=== PATIENT | female | born 1990 | race Caucasian/White ===

== ENCOUNTER 2018-11-17 14:32 | Emergency (ER) | payer SELFPAY ==
[~2018-11-17] VITALS: Ht 162.6 cm; Wt 86.0 kg
[~2018-11-17 14:32] MED LIST: PREN1TAB49 PO
[2018-11-17 14:37] VITALS: BP 125/70; PULSE 74; RESP 18; Ht 162.6 cm; Wt 86.0 kg
--- NOTE | 2018-11-17 16:15 | ERD ---
ER Documentation Chief Complaint Chief Complaint LIFTED HEAVY OBJECT AT WORK WITH LEFT RIB PAIN X 1 DAY HPI This patient is a 28-year-old female with no significant medical history presenting to the emergency department complaining of left pelvic and left lower rib pain which began yesterday. She states pain is sharp. She is currently 8 weeks , . She states her symptoms were gradual onset and then progressively worsened. Pain is constant and rated 9/10 in severity. She took no medication for relief of symptoms. Her pain is worse when putting weight on her left leg. She denies any fevers, chills, vaginal discharge, vaginal bleeding, abdominal pain, nausea, vomiting, diarrhea, or other symptoms at this time. ROS All systems reviewed and are negative except as per history of present illness. Medications Home Meds Active Scripts Acetaminophen* (Tylenol*) 325 Mg Tablet, 2 TAB PO Q6 PRN for PAIN AND OR ELEVATED TEMP, #20 TAB Prov:AUDRA DICKSON PA-C 11/17/18 Reported Medications Vits W-Ca,Fe,Fa(<1MG) () 1 Tab Tablet, 1 TAB PO DAILY 11/26/12 Allergies Allergies: Coded Allergies: No Known Allergy (Verified , 05/10/13) PMhx/Soc Medical and Surgical Hx: pt denies Medical Hx, pt denies Surgical Hx Hx Alcohol Use: No Hx Substance Use: No Hx Tobacco Use: No Smoking Status: Never smoker FmHx Family History: No diabetes Physical Exam Vitals Vital Signs Date Temp Pulse Resp B/P (MAP) Pulse Ox O2 O2 Flow FiO2 Time Delivery Rate 11/17/18 97.8 74 18 125/70 100 14:37 (88) Physical Exam Const: No acute distress Head: Atraumatic Eyes: Normal Conjunctiva ENT: Normal External Ears, Nose and Mouth. Neck: Full range of motion. No meningismus. Resp: Clear to auscultation bilaterally Cardio: Regular rate and rhythm, no murmurs Abd: Soft, non tender, non distended. Normal bowel sounds. Tenderness palpation of the left pelvic region. There is no rebound tenderness or guarding. No McBurney's point tenderness. MSK: Tenderness palpation of the left lower ribs. No crepitus. Skin: No petechiae or rashes Back: No midline or flank tenderness Ext: No cyanosis, or edema Neur: Awake and alert Psych: Normal Mood and Affect Result Diagram: 11/17/18 1550 Results 24 hrs Laboratory Tests Test 11/17/18 15:50 White Blood Count 9.0 10^3/ul Red Blood Count 4.39 10^6/ul Hemoglobin 13.4 g/dl Hematocrit 39.9 % Mean Corpuscular Volume 90.9 fl Mean Corpuscular Hemoglobin 30.5 pg Mean Corpuscular Hemoglobin Concent 33.6 g/dl Red Cell Distribution Width 12.5 % Platelet Count 260 10^3/UL Mean Platelet Volume 10.1 fl Immature Granulocytes % 0.300 % Neutrophils % 61.2 % Lymphocytes % 30.2 % Monocytes % 6.0 % Eosinophils % 2.0 % Basophils % 0.3 % Nucleated Red Blood Cells % 0.0 /100WBC Immature Granulocytes # 0.030 10^3/ul Neutrophils # 5.5 10^3/ul Lymphocytes # 2.7 10^3/ul Monocytes # 0.5 10^3/ul Eosinophils # 0.2 10^3/ul Basophils # 0.0 10^3/ul Nucleated Red Blood Cells # 0.0 10^3/ul Urine Color YELLOW Urine Clarity SLIGHTLY CLOUDY Urine pH 5.0 Urine Specific [place] 1.020 Urine Ketones NEGATIVE mg/dL Urine Nitrite NEGATIVE mg/dL Urine Bilirubin NEGATIVE mg/dL Urine Urobilinogen NEGATIVE mg/dL Urine Leukocyte Esterase TRACE Mauro/ul Urine Microscopic RBC 1 /HPF Urine Microscopic WBC 5 /HPF Urine Squamous Epithelial Cells MODERATE /HPF Urine Bacteria FEW /HPF Urine Mucus FEW /HPF Urine Hemoglobin NEGATIVE mg/dL Urine Glucose NEGATIVE mg/dL Urine Total Protein NEGATIVE mg/dl Beta HCG, Quantitative 01624.0 mIU/ml [place] [id number] Radiology Main Line: [phone] DIAGNOSTIC IMAGING REPORT Patient: TONY OTERO : 1990 Age: 28 Sex: F MR #: [id number] DOS: 11/17/18 1539 Ordering MD: AUDRA DICKSON PA-C Location: [facility] Room/Bed: PROCEDURE: US OB. CLINICAL INDICATION: Pelvic pain TECHNIQUE: Transabdominal views of the pelvis are available for review. COMPARISON: No prior studies are available for comparison. FINDINGS: There is a single intrauterine gestation with the crown-rump length measuring 1.7 cm, corresponding to a gestational age of 8 weeks and 1 day. The heart rate is noted at 165 bpm. The right ovary is normal and measures 2.7 x 2.2 x 2.1 cm. The left ovary was not seen. There is no free fluid. RPTAT: AA IMPRESSION: Single live intrauterine with an estimated gestational age of 8 weeks and 1 day, based on ultrasound measurements. Left ovary not seen. .Abdoulaye Dumas MD, MD Date Time Electronically viewed and signed by .Abdoulaye Dumas MD, MD on 11/17/2018 17:05 .S/ CC: AUDRA DICKSON PA-C [id number] [place] [address] Radiology Main Line: [phone] DIAGNOSTIC IMAGING REPORT Patient: TONY OTERO : 1990 Age: 28 Sex: F MR #: [id number] DOS: 11/17/18 0000 Ordering MD: AUDRA DICKSON PA-C Location: [facility] Room/Bed: PROCEDURE: XR Chest. CLINICAL INDICATION: chest pain TECHNIQUE: PA and lateral views of the chest were obtained COMPARISON: 11/26/12 FINDINGS: The heart and mediastinum are within normal limits. The lungs are clear. There is no pleural effusion or pneumothorax. The bones and soft tissues are unremarkable. RPTAT: AA IMPRESSION: No acute disease. .Abdoulaye Dumas MD, MD Date Time Electronically viewed and signed by .Abdoulaye Dumas MD, MD on 11/17/2018 16:09 .S/ CC: AUDRA DICKSON PA-C [phone] Procedures/MDM 20-year-old female presenting to the emergency department complaining of left lower rib pain and left pelvic pain. Patient states her pain is significantly worse than the pelvic pain. Obstetrics ultrasound showed a live intrauterine . The full report from the radiologist may be viewed above. Left- sided rib x-ray was negative for any acute abnormalities. The full report from the radiologist may be viewed above. The patient declined pain medication in the department. Lab studies were essentially unremarkable. Medical decision making: Patient symptoms are likely secondary to musculoskele ros etiology. Much lower suspicion for pneumothorax, pulmonary embolism, acute coronary syndrome, ectopic , ovarian torsion, tubo-ovarian abscess, or other emergencies. Patient was pain-free prior to discharge. Patient stable and appropriate for discharge and further treatment as an outpatient. She agreed with the diagnosis, plan, need for follow-up, return precautions. No evidence to suggest lengthening pathology at time of discharge. Patient's questions and concerns were addressed prior to discharge. Departure Diagnosis: Primary Impression: Rib pain Condition: Fair Patient Instructions: Rib Contusion AUDRA DICKSON PA-C Nov 17, 2018 16:15
[2018-11-17] MEDS ORDERED: ACET325T33 PO (17:22)
== END 2018-11-17 17:32 | disposition home or self-care (01) ==
LOC: FTE 14:32
DX: O99.89 Other specified diseases and conditions complicating pregnancy, childbirth and the puerperium (principal); R07.81 Pleurodynia; R10.2 Pelvic and perineal pain; Z3A.08 8 weeks gestation of pregnancy
CPT/HCPCS: 36415; 71046; 76801; 81001; 84702; 85025

== ENCOUNTER 2019-07-14 10:31 | Emergency (ER) | payer SELFPAY ==
[~2019-07-14] VITALS: Ht 162.6 cm; Wt 82.0 kg
[~2019-07-14 10:31] MED LIST changes: +ACET325T33 PO; +IBUP-1542 PO
[2019-07-14 10:34] VITALS: BP 122/60; PULSE 65; RESP 18; Ht 162.6 cm; Wt 82.0 kg
== END 2019-07-14 12:53 | disposition home or self-care (01) ==
LOC: FTE 10:31
DX: M25.511 Pain in right shoulder (principal); R07.9 Chest pain, unspecified
CPT/HCPCS: 71045